=== PATIENT | female | born 1930 | race American Indian/Alaskan Native ===

== ENCOUNTER 2017-04-17 11:29 | Day surgery (SDC) | payer MEDICARE ==
[~2017-04-17 11:29] MED LIST: IOPIDINE OD ONE; IOPIDINE ONE; MYDRIACYL OD ONE; MYDRIACYL ONE; NEOFRIN OD ONE; NEOFRIN ONE
[2017-04-17 11:51] VITALS: BP 160/80
[2017-04-17] MEDS ORDERED: NEOFRIN OD ONE (12:10)
[2017-04-17] MEDS ORDERED: IOPIDINE OD ONE (12:10)
[2017-04-17] MEDS ORDERED: MYDRIACYL OD ONE (12:10)
== END 2017-04-17 11:30 | disposition home or self-care (01) ==
LOC: OR 11:29
PROVIDERS: ATTEND Specialist
DX: H26.491 Other secondary cataract, right eye (principal)